=== PATIENT | female | born 1985 | race Caucasian/White ===

== ENCOUNTER 2017-01-13 11:05 | Emergency (ER) | payer OTHER ==
[~2017-01-13] VITALS: Ht 172.7 cm; Wt 100.0 kg
[~2017-01-13 11:05] MED LIST: AMT50T PO; BUSP10TA2 PO; DIAZ10TA3 PO; DULO60CA42 PO; GABA800T PO; HYDR-3605 PO; ONDA-53 PO; OXYB15TA PO; PANT40TA3 PO; SOMA350 PO
[2017-01-13 11:10] VITALS: BP 128/92; PULSE 120; RESP 17; O2SAT 99
--- NOTE | 2017-01-13 11:45 | ED.REPORT ---
HPI-Extremity Problem Lower Date of Service Jan 13, 2017 ED Provider: Ramon Gardiner PA-C Rufina is a 31-year-old female with history of fibromyalgia, irritable bowel syndrome, psoriasis presenting with chief complaint of bilateral leg pain. She complains of one and a half month history of pain in her right hip and knee. This is been assessed by her primary care provider Dr. Rosales, who performed x- rays and diagnosed osteoarthritis. Treatment has been attempted with tramadol to poor affect. Patient reports Dr. Jo prescribed "shots at home" she is unsure what these are. She states he has worked for brief period but not help anymore. She complains additionally of pain in her left hip. She is attempted to contact Dr. Rosales's office yesterday and was unable to. She finds the pain intolerable and presents to the emergency department today. States the pain radiates from her toes to her head and rates it 10 over 10. Complains of tremulousness and reduced appetite as well as poor sleep. Patient denies trauma , fever, chills, saddle anesthesia, urinary retention and fecal incontinence. Nursing Notes Stated Complaint: LEG PAIN Chief Complaint: Extremity Trauma Nursing Notes Reviewed: Yes Allergies: Coded Allergies: No Known Allergies (Verified Allergy, Unknown, 12/17/14) Scheduled Amitriptyline (Amitriptyline) 50 Mg Tab 50 MG PO HS Buspirone (Buspirone) 10 Mg Tablet 10 MG PO TID Duloxetine (Cymbalta) 60 Mg Capsule.dr 60 MG PO DAILY Gabapentin (Neurontin) 800 Mg Tablet 800 MG PO QID Oxybutynin Chloride ER (Oxybutynin Chloride ER) 15 Mg Tab.er.24 15 MG PO DAILY Pantoprazole (Pantoprazole DR) 40 Mg Tablet.dr 40 MG PO DAILY Scheduled PRN Acetaminophen (Acetaminophen) 500 Mg Tablet 1,000 MG PO Q6H PRN PRN For Fever Carisoprodol (Carisoprodol) 350 Mg Tablet 350 MG PO TID PRN PRN unknown Diazepam (Diazepam) 10 Mg Tablet 10 MG PO prn PRN PRN For Anxiety HydrOXYzine HCl (HydrOXYzine HCl) 10 Mg Tablet 25 MG PO prn PRN PRN For Itching Miscellaneous Medications Ondansetron (Ondansetron) 4 Mg Tablet 4 MG PO General Time Seen by MD: 11:24 Chief Complaint Other (bilateral leg pain) Past Medical History Past Medical History fibromyalgia UTIs Past Surgical History eye surgery Smoking History Never Smoker Social History Alcohol Use: Denies alcohol use Drug Use: Denies drug use Review of Systems Review of Systems Note: Negative unless stated otherwise in history of present illness Physical Exam General: Well appearing, well developed, well nourished, moderate distress. Right hip: Normal to inspection, mildly tender. No redness, swelling, heat. Patient resists range of motion examination however when she rises from the gurney she appears to have good range of motion. Right knee: Normal to inspection, mildly tender. No redness, swelling, heat. Patient resists range of motion examination however when she rises from the gurney she appears to have good range of motion. Left knee: Normal to inspection, mildly tender. No redness, swelling, heat. Patient resists range of motion examination however when she rises from the gurney she appears to have good range of motion. Bilateral feet/ankles: Normal to inspection, nontender. DP and PT pulses 2+. Sensation and brisk capillary refill intact in distal phalanges. Head: Atraumatic, normocephalic. Eyes: No scleral icterus or injection. No discharge. Vision grossly intact. ENT: Voice clear, hearing grossly intact. Respiratory: Regular rate and rhythm. Breath sounds present, clear to auscultation and equal bilaterally. No respiratory distress. No increased work of breathing, speaks in complete sentences. Cardiovascular: Tachycardic rate at 116 and regular rhythm, without murmur, gallop or rub. No pedal edema. Gastrointestinal: Abdomen flat and non-tender without guarding or rebound. Bowel sounds normoactive. Skin: Warm and dry. Neurological: Antalgic gait. Hip flexion, knee extension, ankle dorsiflexion and plantarflexion strength 5/5 B/L. Patellar and Achilles reflexes present and equal B/L. Sensation to sharp touch intact at medial leg, dorsal foot and lateral foot B/L. negative seated straight leg raise, negative seated cross straight leg raise. Psychological: Alert and oriented. Speech appropriate, linear and logical. Behavior appropriate. Initial Vital Signs Vital Signs (First) Date Time Temp Pulse Resp B/P Pulse Ox O2 Delivery O2 Flow Rate FiO2 01/13/17 11:10 37.1 120 17 128/92 99 Room Air Tachycardia, elevated blood pressure Interpretation & Diagnostics Lab Results Interpretation Result Diagram: 01/13/17 1620 01/13/17 1620 Test 01/13/17 16:20 White Blood Count 6.7th/mm3 (3.8-10.1) Red Blood Count 4.38mil/mm3 (3.90-5.20) Hemoglobin 13.4g/dL (12.0-15.6) Hematocrit 40.5% (35.0-46.0) Mean Corpuscular Volume 92.5fL (81-100) Mean Corpuscular Hemoglobin 30.6pg (27.0-35.0) Mean Corpuscular Hemoglobin Concent 33.1% (32.0-37.0) Red Cell Distribution Width 13.1% (12.3-15.4) Platelet Count 308bil/L (150-400) Neutrophils (%) (Auto) 56.0% (40-74) Lymphocytes (%) (Auto) 31.0% (14-46) Monocytes (%) (Auto) 9.1% (4-12) Eosinophils (%) (Auto) 3.4% (0-5) Basophils (%) (Auto) 0.4% (0-3) Sodium Level 138mEq/L (134-144) Potassium Level 3.7mEq/L (3.5-5.2) Chloride Level 103mEq/L (97-108) Carbon Dioxide Level 19mmol/L (18-29) Blood Urea Nitrogen 13mg/dL (6-20) Creatinine 0.75mg/dL (0.57-1.00) Estimat Glomerular Filtration Rate 127mL/min (>59) Glucose Level 103mg/dL (60-99) Calcium Level 8.8mg/dL (8.5-10.1) Total Bilirubin 0.3mg/dL (0.0-1.2) Aspartate Amino Transf (AST/SGOT) 24U/L (0-50) Alanine Aminotransferase (ALT/SGPT) 25U/L (0-32) Alkaline Phosphatase 91U/L (25-150) Total Protein 7.1g/dL (6.4-8.4) Albumin 4.0g/dL (3.4-5.0) Re-Eval/Medical Decision Med Decision/Clinical Course 31-year-old female with history of fibromyalgia, IBS, psoriasis presents to the emergency department for a 1-1/2 month history of right hip, right knee pain which is recently progressed to include left hip pain. Reports increased pain in the last several days. Prescribed tramadol and IM ketorolac by her primary care provider which she no longer finds helpful. Patient reports that her primary care provider diagnosed with osteoarthritis on x-ray of her right hip and knee. Reports pain radiates to her feet and to her head. Denies fever, shaking chills, abdominal pain, vomiting, diarrhea, saddle anesthesia, bowel/ bladder dysfunction. Physical examination reveals diffuse tenderness over the hips and knees, negative for redness, swelling. Patient resists range of motion examination, however exhibits good range of motion when moving to step off the gurney. Antalgic gait. Patellar and Achilles tendon reflexes are intact and equal bilaterally. Normal strength. Back is nontender. Physical examination is otherwise benign and vitals are normal with exception of fairly significant tachycardia. Considered the possibility of septic joint, fracture, lumbar radiculopathy and find these unlikely in the context of relatively free range of motion, good weightbearing, leg trauma, normal neurological examination. There is no indication of cauda equina. I believe this is her ongoing chronic pain. Patient is eventually controlled with ketorolac, acetaminophen, oxycodone and small amount of Valium, and the patient wishes to be discharged. At this time her heart rate is roughly 100 bpm. Discharge vitals reveal again show significant tachycardia at approximately 130 bpm. After discussion with the patient, evaluation by ECG, CBC, CMP is initiated as well as 1 L normal saline IV. Studies returned reassuring, heart rate falls below 100 with 1 L of normal saline. I discussed this case with Dr. Marky Heck, we agree the patient is stable and safe to be discharged. Advised primary care follow-up, [id number] analgesia. Patient repeatedly requested medication to help her through to her primary care appointment. I am concerned about prescribing opiates for chronic pain, and explained this to the patient. She is understanding but frustrated. She expresses understanding of and consent to the plan. Provided emergency return precautions. Re-Evaluation/Progress #1: Time of Eval: 12:29 Re-Evaluation/Progress Note: She reports no improvement in pain. She assures me she is not driving and I ordered 10 mg oxycodone. Re-Evaluation/Progress #2: Time of Eval: 14:43 Re-Evaluation/Progress Note: Patient reports no improvement in pain after 30 mg IM ketorolac, 975 mg by mouth acetaminophen, 10 mg by mouth oxycodone, 1 mg IM Ativan. Heart rate is 100 bpm and regular. Discharge & Departure Impression: Primary Impression: Leg pain, bilateral Disposition: Home Discharge Condition All VS Reviewed: Yes Condition: Stable Additional Instructions: Evaluation for leg pain in the emergency department include interview, physical examination which are reassuring that this is unlikely to be caused by an immediately dangerous conditions such as fracture or infection. I suggest adding 1000 mg of acetaminophen (Tylenol) every 6 hours to your usual pain regimen. Follow-up with your primary care provider as soon as possible. Return to emergency department for new or worsening symptoms including increasing pain, redness, swelling, fever, numbness between your legs or bowel/ bladder dysfunction. Referrals: Ace Merino MD (PCP) EDSupervising Provider for APC: Johnathan Lozano DO copies to: Ace Merino MD, Seth PA-C Jan 13, 2017 11:45
[2017-01-13 13:07] VITALS: BP 128/91; PULSE 101; RESP 18; O2SAT 97
[2017-01-13] MEDS ORDERED: ACET-171 PO (15:43)
[2017-01-13 16:01] VITALS: BP 128/94; PULSE 125; RESP 16; O2SAT 97
[2017-01-13] MEDS ORDERED: 0.9% Sodium Chloride 1,000 ML IV ONE (16:01)
[2017-01-13 17:03] LABS: BASOPHILS % (AUTO) 0.4 % (0-3); EOSINOPHILS % (AUTO) 3.4 % (0-5); MONOCYTES % (AUTO) 9.1 % (4-12); Mean Corpuscular Hemoglobin 30.6 pg (27.0-35.0); Mean Corpuscular Volume 92.5 fL (81-100); Platelet Count 308 bil/L (150-400)
[2017-01-13 18:22] VITALS: BP 135/96; PULSE 96; RESP 16; O2SAT 99
== END 2017-01-13 18:00 | disposition home or self-care (01) ==
LOC: SED 11:05
DX: M79.604 Pain in right leg (principal); M79.605 Pain in left leg; M25.552 Pain in left hip; R25.1 Tremor, unspecified; M79.7 Fibromyalgia; Z87.440 Personal history of urinary (tract) infections; Z98.890 Other specified postprocedural states
CPT/HCPCS: 36415; 80053; 85025; 93005; 96360; 96372; 99285; J1885; J2060; J7030

== ENCOUNTER 2017-01-25 10:25 | Emergency (ER) | payer OTHER ==
[~2017-01-25] VITALS: Ht 172.7 cm; Wt 100.0 kg
[~2017-01-25 10:25] MED LIST changes: +ACET-171 PO
[2017-01-25 10:28] VITALS: BP 131/87; PULSE 83; RESP 16; O2SAT 99
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
[2017-01-25] MEDS ORDERED: TIZA4TAB4 PO (10:50)
[2017-01-25] MEDS ORDERED: HYOS-22 PO (10:50)
[2017-01-25] MEDS ORDERED: HYDR4TAB PO (11:21)
[2017-01-25] MEDS ORDERED: DULO60CA61 PO (11:21)
[2017-01-25] MEDS ORDERED: PANT40TA2 PO (11:21)
[2017-01-25] MEDS ORDERED: DULO30CA50 PO (11:21)
[2017-01-25] MEDS ORDERED: PREG200C PO (11:21)
[2017-01-25] MEDS ORDERED: HYDR50TA76 PO (11:21)
[2017-01-25] MEDS ORDERED: TOLT4CAP13 PO (11:21)
[2017-01-25] MEDS ORDERED: FOLI1TAB18 PO (11:21)
[2017-01-25] MEDS ORDERED: TOPI-31 PO (11:21)
[2017-01-25] MEDS ORDERED: BUSP15TA3 PO (11:21)
[2017-01-25] MEDS ORDERED: MELO-253 PO (11:21)
[2017-01-25 13:30] VITALS: BP 123/83; PULSE 94; RESP 17; O2SAT 97
--- NOTE | 2017-01-25 13:35 | DRSVH ---
PROCEDURE: MRI LUMBAR SPINE WITHOUT CONTRAST ([id number]) INDICATIONS: progressive weakness right leg TECHNIQUE: Noncontrast sagittal T1 spin echo and T2 fast echo, sagittal STIR, axial T1 and T2 fast spin echo thr ough the lumbar spine. In cases with scoliosis, additional coronal T2 fast spin echo may be performe d. COMPARISON: [facility], MR, LUMBAR SPINE W/O CONTRAST, 06/25/2014, 7:08. [facility], CR, XR LUMBAR SPINE 2 OR 3VW, 12/28/2016, 9:47. FINDINGS: Image quality: Excellent. Alignment and Curvature: There is normal bony alignment and curvature. Bone Marrow: Minimal reactive endplate change is noted adjacent to the L5-S1 disc. No acute vertebral body compression fractures. Spinal Cord: Conus medullaris terminates at the L1 level. Visualized cord demonstrates normal signa l and size. Paraspinous Soft Tissues: No paravertebral masses. L1-L2: Normal appearance. L2-L3: Normal appearance. L3-L4: Normal appearance. L4-L5: Normal appearance. L5-S1: Loss of disc signal and height. Mild, diffuse disc bulge. Moderate-sized central/right central disc extrusion. Extruded disc material impinges upon the traversing right S1 nerve root. Moderate na rrowing the central canal secondary to disc disease. Mild bilateral neural foraminal narrowing second viktoria to disc disease. IMPRESSION: 1. Central/right central L5-S1 disc extrusion. Extruded disc material impinges on the right S1 nerve root. Please correlate with clinical data. 2. Moderate L5-S1 degenerative disc disease. 3. Moderate L5-S1 central canal narrowing. 4. Mild bilateral L5-S1 neural foraminal narrowing. Dictated by: Nely Nguyễn MD, PhD on 01/25/2017 at 13:27 Approved by: Nely Nguyễn MD, PhD on 01/25/2017 at 13:33
[2017-01-25] MEDS ORDERED: DXM4T PO (14:35)
[2017-01-25 15:05] VITALS: BP 142/74; PULSE 98; RESP 14; O2SAT 98
== END 2017-01-25 15:06 | disposition home or self-care (01) ==
LOC: SED 10:25
DX: M51.17 Intervertebral disc disorders with radiculopathy, lumbosacral region (principal); W06.XXXA Fall from bed, initial encounter; Y93.89 Activity, other specified; Y92.009 Unspecified place in unspecified non-institutional (private) residence as the place of occurrence of the external cause; Y99.8 Other external cause status; M25.551 Pain in right hip; M79.7 Fibromyalgia; Z87.440 Personal history of urinary (tract) infections; Z98.890 Other specified postprocedural states
CPT/HCPCS: 72148; 96372; 99284; J1885